=== PATIENT | male | born 1935 | race Two or more races ===

== ENCOUNTER → 2016-08-10 | Outpatient (CLI) | payer MEDICARE ==
[~2016-08-10] MED LIST: REGADENOSON 0.4 MG/5 ML DISP.SYRIN. IV ONE
== END | disposition home or self-care (01) ==
LOC: PCVCIMAG 08:28
PROVIDERS: ATTEND Internal Medicine Cardiovascular Disease
DX: Z01.810 Encounter for preprocedural cardiovascular examination (principal); I67.9 Cerebrovascular disease, unspecified; I42.8 Other cardiomyopathies
CPT/HCPCS: 78452; 93017; A9500; J2785

== ENCOUNTER → 2017-03-21 | Outpatient (CLI) | payer MEDICARE | END | disposition home or self-care (01) | LOC: PCVCCLINIC 13:23 | PROVIDERS: ATTEND Internal Medicine Cardiovascular Disease | DX: I42.8 Other cardiomyopathies (principal); N18.4 Chronic kidney disease, stage 4 (severe); C90.01 Multiple myeloma in remission; I13.0 Hypertensive heart and chronic kidney disease with heart failure and stage 1 through stage 4 chronic kidney disease, or unspecified chronic kidney disease; I50.9 Heart failure, unspecified; Z72.0 Tobacco use; Z85.038 Personal history of other malignant neoplasm of large intestine; Z85.46 Personal history of malignant neoplasm of prostate; Z79.82 Long term (current) use of aspirin; Z79.899 Other long term (current) drug therapy; Z88.8 Allergy status to other drugs, medicaments and biological substances | CPT/HCPCS: 80061; 93005; G0463 ==

== ENCOUNTER → 2017-12-20 | Outpatient (CLI) | payer MEDICARE | END | disposition home or self-care (01) | LOC: PCVCCLINIC 13:40 | DX: I42.9 Cardiomyopathy, unspecified (principal); C90.01 Multiple myeloma in remission; I10 Essential (primary) hypertension; I77.9 Disorder of arteries and arterioles, unspecified; E78.00 Pure hypercholesterolemia, unspecified; F17.201 Nicotine dependence, unspecified, in remission; Z79.82 Long term (current) use of aspirin; Z86.718 Personal history of other venous thrombosis and embolism | CPT/HCPCS: 80061; 93005; G0463 ==

== ENCOUNTER → 2018-02-20 | Outpatient (CLI) | payer MEDICARE ==
--- NOTE | 2018-02-20 18:05 | PCVCIMAG ---
APPROVED REPORT Imaging Protocol: Rest Tc-99m/Stress Tc-99m 1 day Study performed: 02/20/2018 10:10:25 Indication: Abnormal EKG Patient Location: Out-Patient Stress Nurse: Vane Kapoor RN [place] Tech:BENEDICTO RoblesMT Ht: 5 ft 5 in Wt: 150 lbs BSA: 1.75 m2 HR: 63 bpm BP: 192/91 mmHg BMI: 24.9 Rhythm: SR, Inf ST Abn Medical History Medical History: HTN, Hyperlipidemia, Current Smoker, Age Medications: ASA, Lisinopril, Bystolic, Atorvastatin Allergies: Dexamethazone, Gabapentin, Prednisone, Sulfa Pretest Chest Pain Characteristics: No chest pain Physical Disabilities: Back Meds Held (24 hrs): Bystolic Resting Data Rest SPECT myocardial perfusion imaging was performed in supine position 45 minutes following the intravenous injection of 9.3 mCi of Tc-99m Sestamibi. Time of rest injection: 0930 Date: 02/20/2018 Administration Route: IV Administration Site: Right Arm Pharmacologic Stress Pharmacologic stress test was performed by injecting Regadenoson 0.4 mg IV push over 10-15 seconds immediately followed by the intravenous injection of 33.5 mCi of Tc-99m Sestamibi. Time of stress injection: 1100 Date: 02/20/2018 Administration Route: IV Administration Site: Right Arm Gated Stress SPECT was performed 45 minutes after stress injection. The images were gated to evaluate regional wall motion and calculate left ventricular ejection fraction. Comments Prior Nuclear Stress Test 2017: Nonischemic Stress Test Details Stress Test: Pharmacologic stress testing performed using 0.4 mg of regadenoson per 5 mL given IV over 10 seconds. Reason for pharmacologic stress test: physical limitation. HRMax Heart Rate (APMHR): 140 bpm Resting HR: 63 bpmTarget HR (85% APMHR): 119 bpm Max HR Achieved: 90 bpm % of APMHR: 64 Recovery HR: 77 bpm BP Resting BP: 192/91 mmHg Recovery BP: 161/73 mmHg ECG Resting ECG: SR, Inferior ST Abn Stress ECG: SR, Inferior ST Abn Recovery ECG: SR, Inferior ST Abn Clinical Reason for Termination: Completed protocol Stress Symptoms: Chest tightness, Dyspnea, Nausea, Lightheaded Exercise duration: 0 min 55 sec Symptoms resolved with caffeine. Stress ECG Conclusion ECG: Non-ischemic Study Quality Study: Good Study Data Post stress, the left ventricular ejection was 46%.. SSS: 3 SRS: 3 SDS: 0 TID = 1.10. Perfusion No evidence of stress induced ischemia or prior myocardial infarction. Wall Motion Normal left ventricular size with no regional wall motion abnormalities. Nuclear Conclusion No evidence of stress induced ischemia or prior myocardial infarction. Normal left ventricular size with no regional wall motion abnormalities. Post stress, the left ventricular ejection was 46%. No change since prior study dated August 2016 except ejection fraction measures lower today. Interpreted by: Jaspreet Blanca MD Electronically Approved: 02/20/2018 14:30:14 <Conclusion> ECG: Non-ischemic
== END | disposition home or self-care (01) ==
LOC: PCVCIMAG 09:06
PROVIDERS: ATTEND Internal Medicine Cardiovascular Disease
DX: E85.4 Organ-limited amyloidosis (principal); I10 Essential (primary) hypertension; E78.5 Hyperlipidemia, unspecified; R94.31 Abnormal electrocardiogram [ECG] [EKG]; F17.200 Nicotine dependence, unspecified, uncomplicated; Z88.8 Allergy status to other drugs, medicaments and biological substances
CPT/HCPCS: 78452; 80061; 93017; A9500; J2785

== ENCOUNTER → 2018-09-11 | Outpatient (CLI) | payer MEDICARE | END | disposition home or self-care (01) | LOC: PCVCCLINIC 11:49 | PROVIDERS: ATTEND Internal Medicine Cardiovascular Disease | DX: I42.9 Cardiomyopathy, unspecified (principal); E78.00 Pure hypercholesterolemia, unspecified; I13.0 Hypertensive heart and chronic kidney disease with heart failure and stage 1 through stage 4 chronic kidney disease, or unspecified chronic kidney disease; I50.9 Heart failure, unspecified; N18.3 Chronic kidney disease, stage 3 (moderate); F17.210 Nicotine dependence, cigarettes, uncomplicated; Z86.718 Personal history of other venous thrombosis and embolism; Z82.49 Family history of ischemic heart disease and other diseases of the circulatory system; Z79.82 Long term (current) use of aspirin; Z88.1 Allergy status to other antibiotic agents; Z88.8 Allergy status to other drugs, medicaments and biological substances | CPT/HCPCS: 36415; 80061; 93005; G0463 ==